=== PATIENT | female | born 1985 | race Hispanic/Latino ===

== ENCOUNTER 2018-08-10 09:17 | Emergency (ER) | payer SELFPAY ==
[~2018-08-10] VITALS: Ht 157.5 cm; Wt 61.7 kg
--- OUTSIDE RECORDS SUMMARY | 2018-08-10 09:19 | XMS REPORT ---
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 Allergies, Adverse Reactions, Alerts Allergy Name Allergy Type Status Severity Reaction(s) Onset Date Inactive Date Treating Clinician Comments methylergonovine DA Active SV 2018-05-01 00:00:00 UNKNOWN MED DA Active U 2013-03-23 00:00:00 Medications This patient has no known medications. Encounters Start Date/Time End Date/Time Encounter Type Admission Type Attending Clinicians Care Facility Care Department Encounter ID 2017-01-24 10:12:00 2017-01-24 10:12:00 Outpatient C [facility] MED [id number]
== END 2018-08-10 10:27 | disposition home or self-care (01) ==
LOC: ER 09:17
DX: L50.0 Allergic urticaria (principal)
CPT/HCPCS: 99282

== ENCOUNTER 2019-02-05 18:34 | Observation (INO) | payer OTHER ==
[~2019-02-05] VITALS: Ht 154.9 cm; Wt 62.1 kg
[2019-02-05 20:05] LABS: BILIRUBIN,URINE NEGATIVE (NEGATIVE); CLARITY,URINE CLEAR (CLEAR); KETONES,URINE NEGATIVE (NEGATIVE); LEUKOCYTE ESTERASE ,URINE NEGATIVE (NEGATIVE); NITRITE,URINE NEGATIVE (NEGATIVE); PROTEIN,URINE DIPSTICK NEGATIVE (NEGATIVE); URINE UROBILINOGEN 0.2 mg/dL (0.2 - 1)
[2019-02-05 20:07] LABS: COLOR,URINE COLORLESS (YELLOW)
[2019-02-05 20:17] LABS: EPITHELIAL CELLS,URINE RARE /LPF
[2019-02-05 20:17] LABS: BASOPHILS # (AUTO) 0.1 (0.0-0.1); BASOPHILS % 0.3 % (0.0-1.0); EOSINOPHILS % 0.1 % (0.0-6.0); HEMATOCRIT 48.2 % (34.2-44.1); HEMOGLOBIN 16.1 g/dL (12.0-16.0); LYMPHOCYTES # (AUTO) 2.2 (1.0-3.2); MEAN CORPUSCULAR HGB CONC 33.4 g/dL (31-35); MEAN CORPUSCULAR VOLUME 86.8 fL (81-99); MONOCYTES # (AUTO) 0.8 (0.2-0.8); MONOCYTES % 4.2 % (4.4-11.3); NEUTROPHILS # (AUTO) 15.3 (2.1-6.9); PLATELET COUNT 340 x10e3/uL (140-360); RED BLOOD COUNT 5.55 x10e6/uL (3.6-5.1); RED CELL DISTRIBUTION WIDTH 13.1 % (11.7-14.4)
[2019-02-05] MEDS ORDERED: SODIUM CHLORIDE 0.9% 1000ML 1,000 ML IV ONE (20:30)
[2019-02-05 21:52] LABS: ANION GAP 13.7 mmol/L (8-16); BLOOD UREA NITROGEN 11 mg/dL (7-26); BUN/CREATININE RATIO 15 (6-25); CARBON DIOXIDE 21 mmol/L (22-29); CHLORIDE 105 mmol/L (98-107); CREATININE, SERUM 0.73 mg/dL (0.57-1.11); EST GLOMERULAR FILTRATION RATE > 60 ML/MIN (60-); GLUCOSE 110 mg/dL (74-118); POTASSIUM 3.7 mmol/L (3.5-5.1); SODIUM 136 mmol/L (136-145)
[2019-02-05] MEDS ORDERED: IOPAMIDOL 370 MG/ML 200 ML INFUS..BTL INJ ONE (23:36)
--- NOTE | 2019-02-05 23:50 | Diagnostic Imaging Report ---
EXAM: CT Abdomen and Pelvis WITH contrast INDICATION: ^rectal bleeding, leukocytosis COMPARISON: None. TECHNIQUE: Abdomen and pelvis were scanned utilizing a multidetector helical scanner from the lung base to the pubic symphysis after administration of IV contrast. Coronal and sagittal reformations were obtained. Dose modulation, iterative reconstruction, and/or weight based adjustment of the mA/kV was utilized to reduce the radiation dose to as low as reasonably achievable. Routine protocol was performed. Scan was performed when during portal venous phase. IV CONTRAST: 100 mL of Isovue-370 ORAL CONTRAST: None. COMPLICATIONS: None RADIATION DOSE: Total DLP: 217.9 mGy*cm Estimated effective dose: (DLP x 0.015 x size factor) mSv CTDIvol has been reviewed. It is below the limits set by the Radiation Protocol Committee (RPC). FINDINGS: LINES and TUBES: None. LOWER THORAX: Unremarkable HEPATOBILIARY: No focal hepatic lesions. No biliary ductal dilation. GALLBLADDER: No radio-opaque stones or sludge. No wall thickening. SPLEEN: No splenomegaly. PANCREAS: No focal masses or ductal dilatation. ADRENALS: No adrenal nodules KIDNEYS/URETERS: Kidneys enhance symmetrically. No hydronephrosis. No renal mass. 1.3 cm left superior pole hypodensity with internal density greater than simple fluid, likely a complex cyst. No stones. GI TRACT: No abnormal distention, wall thickening, or evidence of bowel obstruction. Appendix is normal. 2 x 2.5 cm peripherally enhancing right perirectal collection (series 2, image 64). PELVIC ORGANS/BLADDER: Bladder is unremarkable. IUD in place. LYMPH NODES: No lymphadenopathy. VESSELS: Unremarkable. PERITONEUM / RETROPERITONEUM: No free air or fluid. BONES: Unremarkable. SOFT TISSUES: Small fat-containing umbilical hernia. IMPRESSION: 1. 2.5 cm peripherally enhancing perirectal collection, suspicious for a small abscess. Otherwise, no acute inflammatory process in the abdomen/pelvis. 2. 1.3 cm left renal superior pole complex cyst can be further evaluated with nonurgent renal ultrasound. Signed by: Dr. Luan Lance MD on 02/05/2019 11:46 PM
[2019-02-05] MEDS ORDERED: PIPERACILLIN/TAZO 4.5 GM 100 ML IV STA (23:53)
[2019-02-06] VITALS (7 sets, daily range): BP systolic 95–118; BP diastolic 54–69
[2019-02-06] MEDS: METRONIDAZOLE 500MG/NS 100ML 100 ML IV SCH ×2 (00:10→05:21)
[2019-02-06] MEDS ORDERED: PIPER-TAZ 3.375 GM 50 ML IV STA (00:10)
[2019-02-06] MEDS ORDERED: MORPHINE SULFATE 2 MG/ML SYR 1ML IV PRN (00:15)
[2019-02-06] MEDS ORDERED: ONDANSETRON HCL INJ 2MG/ML 2ML 2 MG/ML VIAL IV PRN (00:45)
[2019-02-06] MEDS: SODIUM CHLORIDE 0.9% 1000ML 1,000 ML IV SCH ×2 (00:51→09:43)
--- NOTE | 2019-02-06 01:00 | NUR ---
patient is a new admit that arrived via wheelchair. patient is awake and talking. patient has been assisted into the bed. bed is in lowest position and call carranza is within reach. will continue to monitor patient.
--- NOTE | 2019-02-06 06:49 | NUR ---
Report given to day nurse. patient is resting comfortably in bed. bed is in lowest position and call carranza is within reach.
[2019-02-06] MEDS ORDERED: PIPER-TAZ 3.375 GM 50 ML IV SCH (08:00)
--- NOTE | 2019-02-06 08:23 | NUR ---
Pt resting in bed, at bedside. No c/o pain. Pt stated she feels bloated as if having to have bowel movement but only passing gas. IV fluids being administered, IV patent intact no swelling or redness to insertion site. Resp WNL. A&O x3. NPO at this time. Call light within reach, bed locked and in lowest position.
== END 2019-02-06 14:13 | disposition home or self-care (01) ==
LOC: ER 18:34 → ERHOLD 02-06 00:20 → IMCU 02-06 01:00
PROVIDERS: ADMIT Surgery; ATTEND Surgery
DX: K52.9 Noninfective gastroenteritis and colitis, unspecified (principal)
CPT/HCPCS: 36415; 74177; 80048; 81001; 81025; 85025; 99284; G0378; J2270; J2543 ×2; J7030 ×2; Q9967